=== PATIENT | male | born 1985 | race African-American/Black ===

== ENCOUNTER 2018-09-18 11:13 | Emergency (ER) | payer SELFPAY ==
[~2018-09-18] VITALS: Ht 180.3 cm; Wt 82.5 kg
[~2018-09-18 11:13] MED LIST: IBUP200T58 PO
[2018-09-18 11:18] VITALS: BP 142/87
[2018-09-18] MEDS ORDERED: NAPR-683 PO (11:55)
[2018-09-18] MEDS ORDERED: CEPH-264 PO (11:55)
--- NOTE | 2018-09-18 11:56 | PHYS DOC ---
Past History Past Medical History: Seizure Past Surgical History: Tonsillectomy, Other Alcohol Use: Occasionally Drug Use: Marijuana Adult General Chief Complaint Chief Complaint: SKIN PROBLEM [facility] HPI Patient is a 33 year old male who presents with complaining of a painful lesion in left thigh since yesterday. Patient complaining of a painful lesion in the medial side of left thigh since yesterday without injury or history of the same problem, fever and chills, drainage of pus, history of MRSA. Patient rated his pain 8/10. Patient is up-to-date with tetanus immunization. Review of Systems Review of Systems Constitutional: Denies fever or chills [] Eyes: Denies change in visual acuity, redness, or eye pain [] HENT: Denies nasal congestion or sore throat [] Respiratory: Denies cough or shortness of breath [] Cardiovascular: No additional information not addressed in HPI [] GI: Denies abdominal pain, nausea, vomiting, bloody stools or diarrhea [] : Denies dysuria or hematuria [] Musculoskeletal: Denies back pain or joint pain [] Integument: Denies rash or skin lesions [] Neurologic: Denies headache, focal weakness or sensory changes [] Endocrine: Denies polyuria or polydipsia [] All other systems were reviewed and found to be within normal limits, except as documented in this note. Allergies Allergies Allergies Coded Allergies Type Severity Reaction Last Updated Verified No Known Drug Allergies 08/23/15 No Physical Exam Physical Exam Constitutional: Well nourished, no acute distress, non-toxic appearance. [] HENT: Normocephalic, atraumatic. Eyes: PERRLA, EOMI, conjunctiva normal, no discharge. [] Neck: Normal range of motion, no tenderness, supple, no stridor. [] Cardiovascular:Heart rate regular rhythm, no murmur [] Lungs & Thorax: Bilateral breath sounds clear to auscultation [] Skin: Warm, dry, no erythema, no rash small folliculitis in medial side of left thigh without drainage or sign of abscess[] Back: No tenderness, no CVA tenderness. [] Extremities: No tenderness, no cyanosis, no clubbing, ROM intact, no edema. [] Neurologic: Alert and oriented X 3, normal motor function, normal sensory function, no focal deficits noted. [] Psychologic: Affect anxious Current Patient Data Vital Signs Vital Signs Date Time Temp Pulse Resp B/P (MAP) Pulse Ox O2 Delivery O2 Flow Rate FiO2 09/18/18 11:18 98.4 67 20 100 Room Air EKG EKG [] Radiology/Procedures Radiology/Procedures [] Course & Med Decision Making Course & Med Decision Making discharge: I've spoken with the patient and/or caregivers. I've explained the patient's condition, diagnosis and treatment plan based on information available to me at this time. I've answered the patient's and/or caregivers questions and addressed any concerns. The patient and/or caregivers have a good understanding the patient's diagnosis, condition and treatment plan as can be expected at this point. Vital signs have been stabilized. The patient's condition is stable for discharge from the emergency department. The patient will pursue further outpatient evaluation with her primary care provider or other designated consulting physician as outlined in the discharge instructions. Patient and/or caregivers are agreeable to this plan of care and follow-up instructions have been explained in detail. The patient and/or caregivers have received these instructions in written format and expressed understanding of these discharge instructions. The patient and her caregivers are aware that if any significant change in condition or worsening of symptoms should prompt him to immediately return to this of the closest emergency department. If an emergent department is not readily available I would encourage him to call 911. Lyric Disclaimer Lyric Disclaimer This electronic medical record was generated, in whole or in part, using a voice recognition dictation system. Departure Departure: Impression: Primary Impression: Folliculitis Additional Impressions: Tobacco abuse Tobacco abuse counseling Disposition: HOME, SELF-CARE (at 1149) Condition: STABLE Referrals: PCP,NO (PCP) Patient Instructions: Folliculitis, Smoking Cessation, Tips For Success Additional Instructions: Follow-up with your primary care physician in 3-5 days Return to ER if not getting better Scripts Naproxen (NAPROSYN) 500 Mg Tablet 500 MG PO BID for pain, #20 TAB Prov: ARACELIS [place] MD 09/18/18 Cephalexin (KEFLEX) 500 Mg Capsule 2 CAP PO Q12HR for infection, #28 CAP Prov: ARACELIS [place] MD 09/18/18 Problem Qualifiers ARACELIS [place] MD Sep 18, 2018 11:56
== END 2018-09-18 12:08 | disposition home or self-care (01) ==
LOC: ER 11:13
DX: L73.9 Follicular disorder, unspecified (principal); Z72.0 Tobacco use; Z71.6 Tobacco abuse counseling
CPT/HCPCS: 99283

== ENCOUNTER 2021-05-08 06:37 | Emergency (ER) | payer SELFPAY ==
[~2021-05-08 06:37] MED LIST changes: +CEPH-264 PO; +NAPR-683 PO
== END 2021-05-08 07:12 | disposition left against medical advice (07) ==
LOC: ER 06:37
DX: R22.0 Localized swelling, mass and lump, head (principal); Z53.21 Procedure and treatment not carried out due to patient leaving prior to being seen by health care provider